=== PATIENT | female | born 1975 | race Caucasian/White ===

== ENCOUNTER 2018-05-15 16:25 | Emergency (ER) | payer OTHER ==
[~2018-05-15] VITALS: Ht 170.2 cm; Wt 94.8 kg
== END 2018-05-15 22:12 | disposition home or self-care (01) ==
LOC: ER 16:25
DX: K29.70 Gastritis, unspecified, without bleeding (principal)

== ENCOUNTER 2021-08-02 18:23 | Outpatient (CLI) | payer OTHER | END 2021-08-02 23:00 | disposition home or self-care (01) | LOC: LAB 18:23 | DX: Z20.818 Contact with and (suspected) exposure to other bacterial communicable diseases (principal); Z20.828 Contact with and (suspected) exposure to other viral communicable diseases ==